=== PATIENT | male | born 1945 | race Caucasian/White ===

== ENCOUNTER → 2022-07-20 12:30 | Observation (INO) ==
[2022-07-19] MEDS: NS 0.9% 1000 ml BAG 1,000 ML IV SCH (16:47)
[2022-07-20] MEDS: NS 0.9% 1000 ml BAG 1,000 ML IV SCH (04:59)
[2022-07-20 05:54] LABS: ABS Basophils 0.1 10^3/ul (0-0.2); ABS Eosinophils 0.1 10^3/ul (0-0.6); ABS Lymphocytes 1.2 10^3/ul (1.0-4.8); ABS Monocytes 0.4 10^3/ul (0-0.8); ABS Neutrophils 2.6 10^3/ul (1.5-7.7); Eosinophil % 1.4 %; Hematocrit 37 % (42-52); Hemoglobin 12.2 g/dL (14.0-18.0); Lymphocyte % 27.2 %; Mean Corpuscular HGB Conc 33 g/dL (31-36); Mean Corpuscular Hemoglobin 30 pg (27-31); Mean Corpuscular Volume 90 fL (80-94); Mean Platelet Volume 8.3 fL (7.4-10.4); Nucleated Red Blood Cells % 0.1; Platelet Count 173 10^3/uL (150-450); Red Blood Count 4.12 10^6 /uL (4.18-5.48); Red Cell Distribution Width 14 % (10-15); White Blood Count 4.3 10^3/uL (3.5-10.8)
[2022-07-20 06:17] LABS: Albumin 3.2 g/dL (3.2-5.2); Albumin/Globulin Ratio 1.2 (1-3); Calcium 8.3 mg/dL (8.6-10.3); Globulin 2.6 g/dL (2-4); Potassium 3.9 mmol/L (3.5-5.0); Total Bilirubin 0.9 mg/dL (0.2-1.0); Total Protein 5.8 g/dL (6.4-8.9); eGFR CKD-EPI 89.8 (>60)
[2022-07-20 08:22] VITALS: BP 111/70
[~2022-07-20 12:30] MED LIST: COENZYME Q10 PO SCH; Enoxaparin 40 MG/0.4 ML SYR SUBCUT SCH; Influenza vaccine *QUAD* *2022-23* 0.5 ML SYRINGE IM ONE; [UNRECOGNIZED DRUG - OTHER] PO SCH
== END | disposition home or self-care (01) ==
LOC: MED
PROVIDERS: ADMIT Internal Medicine Hematology & Oncology; ATTEND Internal Medicine Medical Oncology